=== PATIENT | female | born 1950 | race Two or more races ===

== ENCOUNTER → 2023-01-18 | Day surgery (SDC) | payer OTHER ==
[2023-01-11 09:48] LABS: INR 0.97; PARTIAL THROMBOPLASTIN TIME 26.1 SECONDS (22.0-34.0); PROTHROMBIN TIME 10.2 SECONDS (9.0-11.5)
[~2023-01-18] VITALS: Ht 149.9 cm; Wt 55.8 kg
[~2023-01-18] MED LIST: ALTACE2.5 MG PO; BRINZOLAMIDE15 ML OP; CHILDREN'S ASPI81 MG PO; CLONAZEPAM2 MG PO; LIPITOR20 MG PO; RISEDRONATE SOD35 M1 PO; SOLIQUA 100 UNIT3 ML; STIOLTO RESPIMAT4 GM IH
== END | disposition home or self-care (01) ==
LOC: ADM 01-11 08:00 → CIR.AMB 06:00
PROVIDERS: ATTEND Orthopaedic Surgery
DX: M75.41 Impingement syndrome of right shoulder (principal); M75.21 Bicipital tendinitis, right shoulder; M75.121 Complete rotator cuff tear or rupture of right shoulder, not specified as traumatic; M24.111 Other articular cartilage disorders, right shoulder; Z20.822 Contact with and (suspected) exposure to COVID-19; Z91.041 Radiographic dye allergy status; Z88.6 Allergy status to analgesic agent; E11.9 Type 2 diabetes mellitus without complications; E78.5 Hyperlipidemia, unspecified; I10 Essential (primary) hypertension